=== PATIENT | male | born 1980 | race Caucasian/White ===

== ENCOUNTER 2018-02-06 15:13 | Emergency (ER) | payer OTHER ==
[~2018-02-06] VITALS: Ht 175.3 cm; Wt 77.8 kg
[2018-02-06 15:17] VITALS: TEMP 36.5; Ht 175.3 cm; Wt 77.8 kg
[2018-02-06] MEDS ORDERED: HYDROCODONE/ACETAMIN 5/325MG TAB PO STA (15:25)
--- NOTE | 2018-02-06 15:45 | DIAGNOSTIC IMAGING REPORT ---
L FOOT MIN 3 VIEWS ROUTINE HISTORY: 37 years-old Male foot injury acute left foot pain status post trauma COMPARISON: None available TECHNIQUE: 3 views of the left foot FINDINGS: No acute fracture, dislocation or significant degenerative changes. No stress fracture, significant soft tissue swelling or opaque foreign body. IMPRESSION: No acute bony abnormality. The above report was generated using voice recognition software. It may contain grammatical, syntax or spelling errors. Electronically signed by: Antoni Rojas M.D. 02/06/2018 3:44 PM Dictated Date/Time: 02/06/2018 3:41 PM
--- NOTE | 2018-02-06 15:52 | EMERGENCY ROOM VISIT NOTE ---
ED Visit Note First contact with patient: 15:20 CHIEF COMPLAINT: Left foot injury HPI: This 37-year-old male presents to ER with chief complaint of left foot pain. The patient states last evening he was kicking a kick bag with his barefoot and injured his left foot. The patient states it hurts to bear weight. He points to the arch of the foot as the area pain. The patient denies any numbness and tingling in his toes. Patient denies any ankle pain. REVIEW OF SYSTEMS: 6 system review was performed and was negative unless stated otherwise in history of present illness. PMH: The patient is healthy; left hand surgery SOCIAL HISTORY: Patient admits to occasional tobacco and alcohol use. PHYSICAL EXAM: Vital Signs: Reviewed reviewed Nurse's notes. GENERAL: 37-year- old male appears in no acute distress. MENTAL Status: Alert and oriented 3. LEFT FOOT: No gross bony deformity noted. No erythema or edema noted. The patient is tender to palpation over the plantar aspect of the first and second metatarsal region. The patient is able to move his toes without difficulty. Sensation is intact. EMERGENCY DEPARTMENT COURSE: The patient was evaluated. The patient was given [place] 5/325 mg 1 tablet p.o. for pain. X-ray of the left foot was ordered and interpreted by the radiologist and myself as below. DIAGNOSTICS:L FOOT MIN 3 VIEWS ROUTINE HISTORY: 37 years-old Male foot injury acute left foot pain status post trauma COMPARISON: None available TECHNIQUE: 3 views of the left foot FINDINGS: No acute fracture, dislocation or significant degenerative changes. No stress fracture, significant soft tissue swelling or opaque foreign body. IMPRESSION: No acute bony abnormality. The above report was generated using voice recognition software. It may contain grammatical, syntax or spelling errors. Electronically signed by: Antoni Rojas M.D. 02/06/2018 3:44 PM The patient was informed of the findings. The patient has crutches with him to aid in ambulation. The patient was discharged home in stable condition. TREATMENT: Ice and elevation for one day. Ibuprofen, 600mg every 6 hours for the pain. Avoid weight bearing until the pain subsides. Follow up with your own doctor if the pain is no better in 5 days or if it gets worse. DIAGNOSIS: left Foot contusion Problem List Medical Problems: (1) C. difficile diarrhea Status: Resolved (2) Mood disorder Status: Resolved (3) Upper respiratory infection Status: Resolved Current/Historical Medications No Active Prescriptions or Reported Meds Allergies Coded Allergies: No Known Allergies (Unverified , 10/02/16) Vital Signs Date Time Temp Pulse Resp B/P (MAP) Pulse Ox O2 Delivery O2 Flow Rate FiO2 02/06/18 15:17 36.5 88 16 142/88 96 Room Air Medications Administered Medications (Trade) Dose Ordered Sig/Ismael Route Start Time Stop Time Status Last Admin Dose Admin Acetaminophen/ Hydrocodone Bitart ([place] 5/325 Tab) 1 tab NOW STAT PO 02/06/18 15:25 02/06/18 15:28 DC 02/06/18 15:41 1 TAB Departure Information Prescriptions No Active Prescriptions or Reported Meds Referrals No Doctor, Assigned (PCP) Patient Instructions [facility]
[2018-02-06 16:14] VITALS: BP 110/69; PULSE 90; O2SAT 96
== END 2018-02-06 16:14 | disposition home or self-care (01) ==
LOC: C.EDB 15:15 → C.EDD 16:14
DX: S90.32XA Contusion of left foot, initial encounter (principal); W22.8XXA Striking against or struck by other objects, initial encounter; F17.200 Nicotine dependence, unspecified, uncomplicated